=== PATIENT | male | born 1995 | race Hispanic/Latino ===

== ENCOUNTER 2019-10-17 00:44 | Emergency (ER) | payer SELFPAY ==
--- OUTSIDE RECORDS SUMMARY | 2019-10-17 00:46 | XMS REPORT | Continuity of Care Document ---
:1995 Author Organization [facility] t Address [address] [place] [address] Dr. Cruz [address] [place] [id number] Care Team Providers Name Role Phone Unavailable Unavailable Unavailable Problems This patient has no known problems. Allergies, Adverse Reactions, Alerts This patient has no known allergies or adverse reactions. Medications This patient has no known medications. Procedures This patient has no known procedures. Results This patient has no known results.
[2019-10-17] MEDS ORDERED: HYDROCODONE/APAP 10/325 TAB ONE (01:06)
[2019-10-17] MEDS ORDERED: KETOROLAC 30 MG/ML INJ ONE (01:07)
--- NOTE | 2019-10-17 01:50 | EDPHYS ---
Physician Documentation [facility] Name: Massimo Hart Age: 24 yrs Sex: Male : 1995 Arrival Date: 10/17/2019 Time: 00:45 Bed 8 Private MD: ED Physician Hermes Narayan HPI: 10/16 00:57 This 24 yrs old Male presents to ER via Ambulatory with complaints of Rib Pain.[facility] 00:57 The patient or guardian reports chest pain that is located primarily in the anterior félix chest wall. Onset: The symptoms/episode began/occurred 3 day(s) ago. The pain does not radiate. Associated signs and symptoms: The patient has no apparent associated signs or symptoms. The chest pain is described as sharp. Duration: The patient or guardian reports a single episode, that is still ongoing, and unchanged. Modifying factors: The symptoms are alleviated by remaining still, the symptoms are aggravated by activity, breathing, movement. Severity of pain: At its worst the pain was moderate in the emergency department the pain is unchanged. The patient has not experienced similar symptoms in the past. Historical: - Allergies: 00:53 No Known Allergies; sg - Home Meds: 00:53 Metformin Oral [Active]; sg - PMHx: 00:53 Diabetes - NIDDM; sg - PSHx: 00:53 Tonsillectomy; sg - Immunization history:: Adult Immunizations up to date. - Social history:: Smoking status: Patient denies any tobacco usage or history of. - Family history:: not pertinent. ROS: 00:57 Constitutional: Negative for fever, chills, and weight loss, Eyes: Negative for injury, félix pain, redness, and discharge, ENT: Negative for injury, pain, and discharge, Neck: Negative for injury, pain, and swelling, Cardiovascular: Negative for chest pain, palpitations, and edema, Abdomen/GI: Negative for abdominal pain, nausea, vomiting, diarrhea, and constipation, Back: Negative for injury and pain, : Negative for injury, bleeding, discharge, and swelling, MS/Extremity: Negative for injury and deformity, Skin: Negative for injury, rash, and discoloration, Neuro: Negative for headache, weakness, numbness, tingling, and seizure, Psych: Negative for depression, anxiety, suicide ideation, homicidal ideation, and hallucinations, Allergy/Immunology: Negative for hives, rash, and allergies, Endocrine: Negative for neck swelling, polydipsia, polyuria, polyphagia, and marked weight changes, Hematologic/Lymphatic: Negative for swollen nodes, abnormal bleeding, and unusual bruising. 00:57 Respiratory: Positive for cough, pleurisy, of the left supraclavicular area, left clavicle and anterior aspect of left upper chest. Exam: 00:57 Constitutional: This is a well developed, well nourished patient who is awake, alert, félix and in no acute distress. Head/Face: Normocephalic, atraumatic. Eyes: Pupils equal round and reactive to light, extra-ocular motions intact. Lids and lashes normal. Conjunctiva and sclera are non-icteric and not injected. Cornea within normal limits. Periorbital areas with no swelling, redness, or edema. ENT: Nares patent. No nasal discharge, no septal abnormalities noted. Tympanic membranes are normal and external auditory canals are clear. Oropharynx with no redness, swelling, or masses, exudates, or evidence of obstruction, uvula midline. Mucous membranes moist. Neck: Trachea midline, no thyromegaly or masses palpated, and no cervical lymphadenopathy. Supple, full range of motion without nuchal rigidity, or vertebral point tenderness. No Meningismus. Chest/axilla: Normal chest wall appearance and motion. Nontender with no deformity. No lesions are appreciated. Cardiovascular: Regular rate and rhythm with a normal S1 and S2. No gallops, murmurs, or rubs. Normal PMI, no JVD. No pulse deficits. Abdomen/GI: Soft, non-tender, with normal bowel sounds. No distension or tympany. No guarding or rebound. No evidence of tenderness throughout. Back: No spinal tenderness. No costovertebral tenderness. Full range of motion. Male : Normal genitalia with no discharge or lesions. Skin: Warm, dry with normal turgor. Normal color with no rashes, no lesions, and no evidence of cellulitis. MS/ Extremity: Pulses equal, no cyanosis. Neurovascular intact. Full, normal range of motion. Neuro: Awake and alert, GCS 15, oriented to person, place, time, and situation. Cranial nerves II-XII grossly intact. Motor strength 5/5 in all extremities. Sensory grossly intact. Cerebellar exam normal. Normal gait. Psych: Awake, alert, with orientation to person, place and time. Behavior, mood, and affect are within normal limits. 00:57 Respiratory: mild respiratory distress is noted, moderate respiratory distress is noted, Respirations: no acute changes, Breath sounds: are clear throughout, no bronchial sounds, no decreased breath sounds, no rales, rhonchi, no stridor, no wheezing, no acute changes, Respiratory rate: 16 Vital Signs: 00:51 BP 138 / 80; Pulse 97; Resp 16 S; Pulse Ox 100% ; Weight 103.42 kg (R); Height 5 ft. 9 sg in. (175.26 cm) (R); Pain 7/10; 02:20 BP 125 / 70; Pulse 90; Resp 17; Pulse Ox 99% on R/A; rr5 00:51 Body Mass Index 33.67 (103.42 kg, 175.26 cm) sg MDM: 00:47 Patient medically screened. félix 01:00 Differential diagnosis: Blunt Chest Trauma Chest Wall Contusion Chest Wall Injury félix Pleural Effusion Pneumopericardium Pneumothorax Pulmonary Contusion Rib Fracture Ruptured Hemidiaphragm. Data reviewed: vital signs, nurses notes, radiologic studies, plain films. Data interpreted: library monitor: rate is 97 beats/min, rhythm is regular, Pulse oximetry: is not applicable for this patient encounter. Test interpretation: by ED physician or midlevel provider: plain radiologic studies. Counseling: I had a detailed discussion with the patient and/or guardian regarding: the historical points, exam findings, and any diagnostic results supporting the discharge/admit diagnosis, lab results, radiology results, the need for outpatient follow up, for definitive care, a general surgeon. Medication response: 10/16 01:17 Order name: Glucose, Ancillary Testing [facility]AL 10/16 00:53 Order name: Chest Pa And Lat (2 Views) XRAY [facility] 10/16 00:53 Order name: Chest Single View XRAY: expiratory view [facility] 10/16 01:04 Order name: INCENTIVE SPIROMETRY [facility] 10/16 00:53 Order name: Blood Glucose Level; Complete Time: 01:01 félix Administered Medications: 01:01 Drug: [place] 10 mg-325 mg 1 tabs {Note: rass 0.} Route: PO; rr5 02:00 Follow up: Response: No adverse reaction; Pain is decreased; RASS: Alert and Calm (0) rr5 01:02 Drug: TORadol 60 mg Route: IM; Site: right gluteus; rr5 02:00 Follow up: Response: No adverse reaction; Pain is decreased rr5 Disposition: 10/17/19 01:49 Discharged to Home. Impression: Strain of muscle and tendon of front wall of thorax, Strain of muscle and tendon of back wall of thorax, Contusion of left front wall of thorax, Contusion of left back wall of thorax. - Condition is Stable. - Discharge Instructions: Chest Wall Pain, Incentive Spirometer, Chest Wall Pain, [id number]. - Prescriptions for Ibuprofen 600 mg Oral Tablet - take 1 tablet by ORAL route every 6 hours As needed take with food; 20 tablet. Tylenol- Codeine #3 300-30 mg Oral Tablet - take 2 tablets by ORAL route every 6 hours As needed; 26 tablet. Cyclobenzaprine 5 mg Oral Tablet - take 1 tablet by ORAL route 3 times per day As needed; 15 tablet. - Medication Reconciliation Form, Thank You Letter, Antibiotic Education, Prescription Opioid Use, Work release form form. - Follow up: Private Physician; When: 2 - 3 days; Reason: Recheck today's complaints, Continuance of care, Re-evaluation by your physician. Follow up: Baljinder Meléndez; When: 2 - 3 days; Reason: Recheck today's complaints, Re-evaluation by your physician. - Problem is new. - Symptoms have improved. Signatures: Dispatcher [employer] EDMS Terrell Rincon RN RN sg Anderson, Corey, MD MD cha Roque, Raymond, RN RN rr5 Corrections: (The following items were deleted from the chart) 02:29 01:49 10/17/2019 01:49 Discharged to Home. Impression: Strain of muscle and tendon of rr5 front wall of thorax; Strain of muscle and tendon of back wall of thorax; Contusion of left front wall of thorax; Contusion of left back wall of thorax. Condition is Stable. Discharge Instructions: Chest Wall Pain, Chest Wall Pain, [id number], Incentive Spirometer. Prescriptions for Tylenol-Codeine #3 300-30 mg Oral Tablet - take 2 tablets by ORAL route every 6 hours As needed; 26 tablet, Cyclobenzaprine 5 mg Oral Tablet - take 1 tablet by ORAL route 3 times per day As needed; 15 tablet, Ibuprofen 600 mg Oral Tablet - take 1 tablet by ORAL route every 6 hours As needed take with food; 20 tablet. and Forms are Medication Reconciliation Form, Thank You Letter, Antibiotic Education, Prescription Opioid Use. Follow up: Private Physician; When: 2 - 3 days; Reason: Recheck today's complaints, Continuance of care, Re-evaluation by your physician. Follow up: Baljinder Meléndez; When: 2 - 3 days; Reason: Recheck today's complaints, Re-evaluation by your physician. Problem is new. Symptoms have improved. félix
--- NOTE | 2019-10-17 01:50 | ER ---
Nurse's Notes [facility] Name: Massimo Hart Age: 24 yrs Sex: Male : 1995 Arrival Date: 10/17/2019 Time: 00:45 Bed 8 Private MD: Diagnosis: Strain of muscle and tendon of front wall of thorax;Strain of muscle and tendon of back wall of thorax;Contusion of left front wall of thorax;Contusion of left back wall of thorax Presentation: 10/16 00:51 Chief complaint: Patient states: I was at a friends house on Monday night, when I guess sg my blood sugar bottomed out and I fell forward onto a chair, hitting my left side of my chest and now Im having worsening rib pain, especially with deeps breathing and coughing, pt reports needing to splint chest to cough to decrease pain. Coronavirus screen: Patient denies a cough. Patient denies shortness of breath or difficulty breathing. Patient denies measured and/or subjective temperature greater than 100.4F prior to today's visit. Patient denies travel on a cruise ship or to a country the [facility] currently lists as an affected area. Patient denies contact with known and/or suspected case of COVID-19. Proceed with normal triage. Ebola Screen: Patient negative for fever greater than or equal to 101.5 degrees Fahrenheit, and additional compatible Ebola Virus Disease symptoms Patient denies exposure to infectious person. Patient denies travel to an Ebola-affected area in the 21 days before illness onset. No symptoms or risks identified at this time. Initial Sepsis Screen: Does the patient meet any 2 criteria? HR > 90 bpm. No. Patient's initial sepsis screen is negative. Does the patient have a suspected source of infection? No. Patient's initial sepsis screen is negative. Risk Assessment: Do you want to hurt yourself or someone else? Patient reports no desire to harm self or others. Onset of symptoms was October 17, 2019. Care prior to arrival: None. Transition of care: patient was not received from another setting of care. 00:51 Method Of Arrival: Ambulatory sg 00:51 Acuity: GEOVANI 4 sg Historical: - Allergies: 00:53 No Known Allergies; sg - Home Meds: 00:53 Metformin Oral [Active]; sg - PMHx: 00:53 Diabetes - NIDDM; sg - PSHx: 00:53 Tonsillectomy; - Immunization history:: Adult Immunizations up to date. - Social history:: Smoking status: Patient denies any tobacco usage or history of. - Family history:: not pertinent. Screenin:00 Abuse screen: Denies threats or abuse. Denies injuries from another. Nutritional rr5 screening: No deficits noted. Tuberculosis screening: No symptoms or risk factors identified. Fall Risk None identified. Total Wilcox Fall Scale indicates No Risk (0-24 pts). Assessment: 00:59 General: Appears in no apparent distress. uncomfortable, Behavior is calm, cooperative, rr5 appropriate for age. Pain: Complains of pain in left lateral anterior chest Pain does not radiate. Pain currently is 7 out of 10 on a pain scale. Quality of pain is described as aching, Pain began suddenly, Is intermittent. Neuro: Level of Consciousness is awake, alert, obeys commands, Oriented to person, place, time, situation. Cardiovascular: Reports chest pain, Capillary refill < 3 seconds Patient's skin is warm and dry. Respiratory: Airway is patent Respiratory effort is even, unlabored, Respiratory pattern is regular, symmetrical. GI: No signs and/or symptoms were reported involving the gastrointestinal system. : No signs and/or symptoms were reported regarding the genitourinary system. EENT: No signs and/or symptoms were reported regarding the EENT system. Derm: Skin is intact, is healthy with good turgor, Skin temperature is warm. Musculoskeletal: Circulation, motion, and sensation intact. Capillary refill < 3 seconds. 02:27 Reassessment: Patient appears in no apparent distress at this time. Patient is alert, rr5 oriented x 3, equal unlabored respirations, skin warm/dry/pink. discharge instruction given and explained without complaints made. Patient states symptoms have improved. Vital Signs: 00:51 BP 138 / 80; Pulse 97; Resp 16 S; Pulse Ox 100% ; Weight 103.42 kg (R); Height 5 ft. 9 sg in. (175.26 cm) (R); Pain 7/10; 02:20 BP 125 / 70; Pulse 90; Resp 17; Pulse Ox 99% on R/A; rr5 00:51 Body Mass Index 33.67 (103.42 kg, 175.26 cm) ED Course: 00:45 Patient arrived in ED. cl3 00:47 Hermes Narayan MD is Attending Physician. [facility] 00:52 Triage completed. 00:53 Arm band placed on. 00:54 Dana Taylor is Primary Nurse. 01:00 Patient has correct armband on for positive identification. Bed in low position. Call rr5 light in reach. court monitor on. Pulse ox on. NIBP on. 01:49 Balijnder Meléndez MD is Referral Physician. [facility] 01:59 Chest Pa And Lat (2 Views) XRAY In Process Unspecified. EDMS 02:01 Chest Single View XRAY: expiratory view In Process Unspecified. EDMS 02:28 No provider procedures requiring assistance completed. Patient did not have IV access rr5 during this emergency room visit. Patient maintains SpO2 saturation greater than 95% on room air. Administered Medications: 01:01 Drug: [place] 10 mg-325 mg 1 tabs {Note: rass 0.} Route: PO; rr5 02:00 Follow up: Response: No adverse reaction; Pain is decreased; RASS: Alert and Calm (0) rr5 01:02 Drug: TORadol 60 mg Route: IM; Site: right gluteus; rr5 02:00 Follow up: Response: No adverse reaction; Pain is decreased rr5 Outcome: 01:49 Discharge ordered by . [facility] 02:28 Discharged to home ambulatory. rr5 02:28 Condition: stable 02:28 Discharge instructions given to patient, Instructed on discharge instructions, follow up and referral plans. medication usage, Demonstrated understanding of instructions, follow-up care, medications, Prescriptions given X 3. 02:29 Patient left the ED. rr5 Signatures: Dispatcher [employer] EDMS Terrell Rincon, RN RN Hermes Wright MD MD cha Habalo, Winsy Kain Whitehead RN RN rr5 Giselle Pinzon cl3
[2019-10-17 02:39] VITALS: BP 125/70; O2SAT 99
--- NOTE | 2019-10-17 08:51 | RAD REPORT ---
EXAM DESCRIPTION: RAD - Chest Pa And Lat (2 Views) - 10/17/2019 1:59 am CLINICAL HISTORY: Chest pain;Pain Chest pain. COMPARISON: CHEST SINGLE VIEW dated 09/26/2012; CHEST PA AND LAT 2 VIEW dated 06/07/2012; CHEST PA AND LAT 2 VIEW dated 05/19/2009; ABDOMEN ACUTE SERIES dated 09/15/2008; Chest Single View dated 10/17/2019 FINDINGS: The lungs are clear. The heart is normal in size. No displaced fractures. IMPRESSION: No acute or concerning finding suspected.
--- NOTE | 2019-10-17 08:52 | RAD REPORT ---
EXAM DESCRIPTION: RAD - Chest Single View - 10/17/2019 2:00 am CLINICAL HISTORY: Chest pain;Pain Chest pain. COMPARISON: Chest Pa And Lat (2 Views) dated 10/17/2019; CHEST SINGLE VIEW dated 09/26/2012; CHEST PA A ND LAT 2 VIEW dated 06/07/2012; CHEST PA AND LAT 2 VIEW dated 05/19/2009 FINDINGS: Expiratory projection was performed. . The lungs are grossly clear. No measurable pneumothorax. The heart is normal in size. No displaced fr actures. IMPRESSION: No acute intrathoracic process suspected.
== END 2019-10-17 02:29 | disposition home or self-care (01) ==
LOC: ER 00:44
DX: S29.011A Strain of muscle and tendon of front wall of thorax, initial encounter (principal); S29.012A Strain of muscle and tendon of back wall of thorax, initial encounter; S20.212A Contusion of left front wall of thorax, initial encounter; S20.222A Contusion of left back wall of thorax, initial encounter; E11.9 Type 2 diabetes mellitus without complications
CPT/HCPCS: 71045; 71046; 82947; 96372; 99285

== ENCOUNTER 2019-12-12 23:45 | Emergency (ER) | payer SELFPAY ==
--- OUTSIDE RECORDS SUMMARY | 2019-12-12 23:46 | XMS REPORT | Continuity of Care Document ---
:1995 Author Organization [facility] t Address [address] [place] [address] Dr. Cruz [address] [place] [id number] Care Team Providers Name Role Phone Unavailable Unavailable Unavailable Problems This patient has no known problems. Allergies, Adverse Reactions, Alerts This patient has no known allergies or adverse reactions. Medications This patient has no known medications. Procedures This patient has no known procedures. Results This patient has no known results.
[2019-12-13] MEDS ORDERED: NA CHLORIDE 0.9% 500 ML ONE (00:30)
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
[2019-12-13 14:58] VITALS: TEMP 98; O2SAT 100
[2019-12-13 15:00] VITALS: BP 135/79
== END 2019-12-13 03:15 | disposition home or self-care (01) ==
LOC: ER 23:45
DX: S20.219A Contusion of unspecified front wall of thorax, initial encounter (principal); S00.93XA Contusion of unspecified part of head, initial encounter; E11.9 Type 2 diabetes mellitus without complications; V49.49XA Driver injured in collision with other motor vehicles in traffic accident, initial encounter
CPT/HCPCS: 70450; 71260; 72125; 74177; 82565; 82947; 93005; 96360; 96361; 99284; G0390; J7040; Q9967